=== PATIENT | male | born 1955 | race Caucasian/White ===

== ENCOUNTER → 2019-02-04 10:00 | Outpatient (CLI) | payer OTHER, SELFPAY ==
--- NOTE | 2019-02-04 10:02 | DI.RAD.S_ITS ---
PROCEDURE: XR WRIST LT MIN 3V INDICATIONS: Left wrist pain status post fall TECHNIQUE: 4 views of the wrist were acquired. COMPARISON: None. FINDINGS: Bones: Diffuse osteopenia. There is a corticated ossific density projecting over the dorsal wrist likely sequela of remote injury to the triquetrum. Subtle linear lucencies involving the distal left radius without evidence for articular cortical disruption. This may represent artifact from overlapping trabeculation. Overall alignment is anatomic. Joint spaces are maintained. No acute fractures seen. No suspicious bony lesions. Scaphoid view: Scapholunate interval is maintained. Visualized scaphoid appears intact. Soft tissues: No suspicious soft tissue calcifications. IMPRESSION: Left wrist without acute fracture or dislocation. If there is persistent clinical concern for occult fracture given adequate mechanism of injury, consider repeat imaging in 10-14 days. Dictated by: Martinez Rodriguez M.D. on 02/04/2019 at 10:27 Approved by: Martinez Rodriguez M.D. on 02/04/2019 at 10:30
== END ==
PROVIDERS: Visit Provider Physical Medicine & Rehabilitation
DX: M25.532 Pain in left wrist (principal)
CPT/HCPCS: 73110

== ENCOUNTER → 2019-05-27 08:11 | Outpatient (CLI) | payer OTHER, SELFPAY ==
--- NOTE | 2019-05-27 | DI.RAD.S_ITS ---
PROCEDURE: XR LUMBAR SPINE 2-3V INDICATIONS: low back pain TECHNIQUE: 3 views of the lumbar spine were acquired. COMPARISON: None. FINDINGS: Bones: 5 [id number] vertebrae are present. There is normal bony alignment. No vertebral body compression fractures. No suspicious bony lesions. Soft tissues: Overlying bowel gas pattern is normal. No suspicious soft tissue calcifications. IMPRESSION: No evidence acute bony abnormality of the lumbar spine. If clinical suspicion and/or symptoms persist, further assessment with repeat plain films, or advanced imaging (e.g., CT, MRI, or bone scan) may be helpful for further assessment. Dictated by: Rainer Gregorio M.D. on 05/27/2019 at 9:40 Approved by: Rainer Gregorio M.D. on 05/27/2019 at 9:40
== END ==
PROVIDERS: PCP Family Medicine; Referring Provider Chiropractor; Visit Provider Chiropractor
DX: M54.5 Low back pain (principal)
CPT/HCPCS: 72100

== ENCOUNTER → 2019-06-09 12:04 | Outpatient (CLI) | payer OTHER, SELFPAY ==
--- NOTE | 2019-06-09 12:07 | DI.RAD.S_ITS ---
PROCEDURE: XR CALCANEOUS RT MIN 2V INDICATIONS: Px plantar aspect of calcaneous w/ wt, h/o fall 3ft,2mos ag TECHNIQUE: Two views of the calcaneus were acquired. COMPARISON: None. FINDINGS: Bones: No fractures or dislocations. No suspicious bony lesions. Soft tissues: No suspicious calcifications. Achilles tendon appears normal. IMPRESSION: Normal for age, source of current pain after trauma symptoms is not seen. Dictated by: David Edwards M.D. on 06/09/2019 at 12:48 Approved by: David Edwards M.D. on 06/09/2019 at 12:49
== END ==
PROVIDERS: PCP Family Medicine; Referring Provider Nurse Practitioner; Visit Provider Nurse Practitioner
DX: M79.671 Pain in right foot (principal)
CPT/HCPCS: 73650

== ENCOUNTER → 2019-09-10 07:51 | Outpatient (CLI) | payer OTHER, SELFPAY ==
[2019-09-10 08:34] LABS: BUN Creatinine Ratio 19.3 (6-22); Blood Urea Nitrogen 17 mg/dL (9-20); Calcium 9.7 mg/dL (8.4-10.2); Carbon Dioxide 27 mmol/L (22-32); Chloride 103 mmol/L (98-107); Cholesterol 167 mg/dL (140-199); Estimated Glomerular Filt Rate > 60.0 mL/min (>60); Glucose 106 mg/dL (80-110); HDL Cholesterol 45 mg/dL (40-60); HEMOLYSIS < 15 (0-50); LDL Cholesterol Calculated 107 mg/dL (<100); Potassium 4.3 mmol/L (3.4-5.1); Sodium 138 mmol/L (137-145); Triglycerides 76 mg/dL (35-150)
[2019-09-10 09:04] LABS: Prostate Specific Antigen 0.626 ng/mL (0.10-4.00)
[2019-09-10 10:11] LABS: Vitamin D 25 Hydroxy (D3) 53.5 ng/mL (30.0-100.0)
== END ==
PROVIDERS: PCP Family Medicine; Referring Provider Family Medicine; Visit Provider Family Medicine
DX: Z12.5 Encounter for screening for malignant neoplasm of prostate (principal); Z13.220 Encounter for screening for lipoid disorders; E55.9 Vitamin D deficiency, unspecified
CPT/HCPCS: 36415; 80048; 80061; 82306; 84153

== ENCOUNTER → 2020-01-27 11:02 | Outpatient (CLI) | payer OTHER, SELFPAY ==
[2020-01-27 12:37] LABS: Add Manual Diff / Slide Review NO; Basophils Absolute Auto 0 /uL (0-100); Basophils Percent Auto 0.2 % (0-2); Eosinophils Absolute Auto 300 /uL (0-450); Eosinophils Percent Auto 3.6 % (2-4); Hematocrit 43.9 % (41-53); Hemoglobin 14.9 g/dL (13.5-17.5); Lymphocytes Absolute Auto 2200 /uL (1100-4500); Lymphocytes Percent Auto 32.1 % (25-40); Mean Corpuscular HGB Conc 33.8 % (30-36); Mean Corpuscular Hemoglobin 29.6 PG (26-34); Mean Corpuscular Volume 87.4 fL (80-100); Monocytes Absolute Auto 600 /uL (0-900); Monocytes Percent Auto 9.1 % (3-14); Neutrophils Absolute Auto 3800 /uL (1500-7000); Platelet Count 256 X10^3/uL (150-400); Red Blood Cell Count 5.02 X10^6/uL (4.5-5.9); Red Cell Distribution Width 12.6 % (11.6-14.8)
[2020-01-27 14:09] LABS: Urine N gonorrhoeae NOT DETECTED
[2020-01-27 14:10] LABS: Urine Chlamydia NOT DETECTED
[2020-01-28 10:03] LABS: RPR Screen Non Reactive (Non Reactive)
[2020-01-28 17:07] LABS: HIV 1 & 2 Ab/Ag 4th Gen Combo NEGATIVE (NEGATIVE)
== END ==
PROVIDERS: PCP Family Medicine; Referring Provider Family Medicine; Visit Provider Family Medicine
DX: K62.6 Ulcer of anus and rectum (principal)
CPT/HCPCS: 36415; 85025; 86592; 87389; 87491; 87591

== ENCOUNTER → 2020-10-27 19:09 | Outpatient (CLI) | payer MEDICARE, OTHER, SELFPAY ==
[2020-10-27 19:48] LABS: COVID19 -Nasal RAPID Negative (Negative)
== END ==
PROVIDERS: PCP Family Medicine; Visit Provider Physician Assistant
DX: R05 Cough (principal); R09.81 Nasal congestion; Z20.822 Contact with and (suspected) exposure to COVID-19
CPT/HCPCS: 87635

== ENCOUNTER → 2021-04-26 07:03 | Outpatient (CLI) | payer MEDICARE, OTHER, SELFPAY ==
[2021-04-26 08:30] LABS: Add Manual Diff / Slide Review NO; Basophils Absolute Auto 0 /uL (0-100); Basophils Percent Auto 0.3 % (0-2); Eosinophils Absolute Auto 300 /uL (0-450); Eosinophils Percent Auto 4.5 % (2-4); Hematocrit 42.4 % (41-53); Hemoglobin 14.5 g/dL (13.5-17.5); Lymphocytes Absolute Auto 2200 /uL (1100-4500); Lymphocytes Percent Auto 36.9 % (25-40); Mean Corpuscular HGB Conc 34.2 % (30-36); Mean Corpuscular Hemoglobin 29.9 PG (26-34); Mean Corpuscular Volume 87.4 fL (80-100); Monocytes Absolute Auto 600 /uL (0-900); Monocytes Percent Auto 9.9 % (3-14); Neutrophils Absolute Auto 2900 /uL (1500-7000); Neutrophils Percent Auto 48.4 % (50-75); Platelet Count 267 X10^3/uL (150-400); Red Blood Cell Count 4.85 X10^6/uL (4.5-5.9); White Blood Cell Count 5.9 X10^3/uL (4.5-11.0)
[2021-04-26 08:48] LABS: Alanine Aminotransferase 27 IU/L (<50); Albumin 4.4 g/dL (3.5-5.0); Albumin Globulin Ratio 1.6 (1.0-2.8); Alkaline Phosphatase 57 U/L (38-126); Aspartate Aminotransferase 28 IU/L (17-59); Bilirubin Total 0.9 mg/dL (0.2-1.3); Blood Urea Nitrogen 25 mg/dL (9-20); Calcium 9.7 mg/dL (8.4-10.2); Carbon Dioxide 31 mmol/L (22-32); Chloride 102 mmol/L (98-107); Cholesterol 150 mg/dL (140-199); Estimated Glomerular Filt Rate > 60.0 mL/min (>60); Globulin 2.7 g/dL (1.7-4.1); Glucose 103 mg/dL (80-110); HDL Cholesterol 52 mg/dL (40-60); HEMOLYSIS < 15 (0-50); LDL Cholesterol Calculated 89 mg/dL (<100); Potassium 4.7 mmol/L (3.4-5.1); Sodium 139 mmol/L (137-145); Total Protein 7.1 g/dL (6.3-8.2); Triglycerides 46 mg/dL (35-150)
[2021-04-26 09:15] LABS: Prostate Specific Antigen Scrn 0.744 ng/mL (0.1-4.0)
== END ==
PROVIDERS: PCP Family Medicine; Referring Provider Family Medicine; Visit Provider Family Medicine
DX: Z85.118 Personal history of other malignant neoplasm of bronchus and lung (principal); Z13.220 Encounter for screening for lipoid disorders; Z12.5 Encounter for screening for malignant neoplasm of prostate
CPT/HCPCS: 36415; 80053; 80061; 85025; G0103

== ENCOUNTER → 2021-05-24 14:16 | Outpatient (CLI) | payer MEDICARE, OTHER, SELFPAY ==
[2021-05-24 14:46] LABS: Add Manual Diff / Slide Review NO; Basophils Absolute Auto 0 /uL (0-100); Basophils Percent Auto 0.1 % (0-2); Eosinophils Absolute Auto 100 /uL (0-450); Eosinophils Percent Auto 0.8 % (2-4); Hematocrit 41.5 % (41-53); Hemoglobin 14.1 g/dL (13.5-17.5); Lymphocytes Absolute Auto 1600 /uL (1100-4500); Lymphocytes Percent Auto 11.5 % (25-40); Mean Corpuscular HGB Conc 34.1 % (30-36); Monocytes Absolute Auto 1500 /uL (0-900); Monocytes Percent Auto 10.6 % (3-14); Neutrophils Absolute Auto 11100 /uL (1500-7000); Platelet Count 274 X10^3/uL (150-400); Red Blood Cell Count 4.72 X10^6/uL (4.5-5.9); Red Cell Distribution Width 12.9 % (11.6-14.8); White Blood Cell Count 14.4 X10^3/uL (4.5-11.0)
[2021-05-24 15:02] LABS: Alanine Aminotransferase 18 IU/L (<50); Albumin 4.5 g/dL (3.5-5.0); Albumin Globulin Ratio 1.5 (1.0-2.8); Alkaline Phosphatase 64 U/L (38-126); Aspartate Aminotransferase 20 IU/L (17-59); BUN Creatinine Ratio 21.4 (6-22); Bilirubin Total 1.2 mg/dL (0.2-1.3); Blood Urea Nitrogen 24 mg/dL (9-20); Calcium 9.7 mg/dL (8.4-10.2); Carbon Dioxide 29 mmol/L (22-32); Chloride 98 mmol/L (98-107); Estimated Glomerular Filt Rate > 60.0 mL/min (>60); Glucose 110 mg/dL (80-110); HEMOLYSIS < 15 (0-50); Potassium 4.5 mmol/L (3.4-5.1); Sodium 136 mmol/L (137-145); Total Protein 7.5 g/dL (6.3-8.2)
== END ==
PROVIDERS: PCP Family Medicine; Referring Provider Physician Assistant; Visit Provider Physician Assistant
DX: N34.3 Urethral syndrome, unspecified (principal); R10.30 Lower abdominal pain, unspecified
CPT/HCPCS: 36415; 80053; 85025; 87086

== ENCOUNTER → 2022-03-26 15:14 | Outpatient (CLI) | payer MEDICARE, OTHER, SELFPAY ==
--- NOTE | 2022-03-26 15:22 | DI.RAD.S_ITS ---
PROCEDURE: XR FOOT RT MIN 3V INDICATIONS: Foot pain TECHNIQUE: 3 views of the foot were acquired. COMPARISON: None. FINDINGS: Bones: No fractures or dislocations. No suspicious bony lesions. Soft tissues: No tibiotalar joint effusion. Achilles tendon appears normal. IMPRESSION: No acute radiographic findings. If pain persists, followup imaging in 5-7 days is recommended to exclude occult fracture. Dictated by: Jeniffer Camilo M.D. on 03/26/2022 at 16:10 Approved by: Jeniffer Camilo M.D. on 03/26/2022 at 16:11
--- NOTE | 2022-03-26 15:22 | DI.RAD.S_ITS ---
PROCEDURE: XR FOOT LT MIN 3V INDICATIONS: Foot pain TECHNIQUE: 3 views of the foot were acquired. COMPARISON: None. FINDINGS: Bones: No fractures or dislocations. No suspicious bony lesions. Soft tissues: No tibiotalar joint effusion. Achilles tendon appears normal. IMPRESSION: No acute radiographic findings. If pain persists, followup imaging in 5-7 days is recommended to exclude occult fracture. Dictated by: Jeniffer Camilo M.D. on 03/26/2022 at 16:11 Approved by: Jeniffer Camilo M.D. on 03/26/2022 at 16:12
== END ==
PROVIDERS: PCP Family Medicine; Referring Provider Nurse Practitioner Family; Visit Provider Nurse Practitioner Family
DX: M79.671 Pain in right foot (principal); M79.672 Pain in left foot
CPT/HCPCS: 73630

== ENCOUNTER → 2022-07-09 08:31 | Outpatient (CLI) | payer MEDICARE, SELFPAY ==
[2022-07-09 09:55] LABS: Hemoglobin 14.1 g/dL (13.5-17.5); Mean Corpuscular HGB Conc 34.4 % (30-36); Mean Corpuscular Hemoglobin 30.1 PG (26-34); Mean Corpuscular Volume 87.4 fL (80-100); Platelet Count 245 X10^3/uL (150-400); Red Cell Distribution Width 13.1 % (11.6-14.8); White Blood Cell Count 5.4 X10^3/uL (4.5-11.0)
[2022-07-09 17:00] LABS: Alanine Aminotransferase 22 IU/L (<50); Albumin 4.1 g/dL (3.5-5.0); Albumin Globulin Ratio 1.5 (1.0-2.8); Alkaline Phosphatase 64 U/L (38-126); Aspartate Aminotransferase 23 IU/L (17-59); BUN Creatinine Ratio 19.6 (6-22); Bilirubin Total 0.5 mg/dL (0.2-1.3); Blood Urea Nitrogen 19 mg/dL (9-20); Calcium 9.2 mg/dL (8.4-10.2); Carbon Dioxide 31 mmol/L (22-32); Chloride 103 mmol/L (98-107); Cholesterol 159 mg/dL (140-199); Estimated Glomerular Filt Rate > 60 mL/min (>60); Globulin 2.8 g/dL (1.7-4.1); Glucose 97 mg/dL (80-110); HDL Cholesterol 48 mg/dL (40-60); LDL Cholesterol Calculated 101 mg/dL (<100); Potassium 4.4 mmol/L (3.4-5.1); Sodium 137 mmol/L (137-145); Total Protein 6.9 g/dL (6.3-8.2); Triglycerides 49 mg/dL (35-150)
[2022-07-09 17:32] LABS: HEMOLYSIS < 15 (0-50); Prostate Specific Antigen Scrn 0.871 ng/mL (0.1-4.0)
== END ==
PROVIDERS: PCP Family Medicine; Referring Provider Family Medicine; Visit Provider Family Medicine
DX: Z85.118 Personal history of other malignant neoplasm of bronchus and lung (principal); Z13.220 Encounter for screening for lipoid disorders; Z12.5 Encounter for screening for malignant neoplasm of prostate; Z13.228 Encounter for screening for other metabolic disorders
CPT/HCPCS: 36415; 80053; 80061; 85027; G0103

== ENCOUNTER 2023-01-29 14:27 | Emergency (ER) | payer MEDICARE, SELFPAY ==
[2023-01-29 14:30] VITALS: BP 147/87; PULSE 69; RESP 18; TEMP 36.3; O2SAT 99; BMI 28.1
[2023-01-29 15:06] LABS: Add Manual Diff / Slide Review NO; Basophils Absolute Auto 0 /uL (0-100); Basophils Percent Auto 0.2 % (0-2); Eosinophils Absolute Auto 100 /uL (0-450); Eosinophils Percent Auto 0.9 % (2-4); Hemoglobin 14.5 g/dL (13.5-17.5); Lymphocytes Absolute Auto 1700 /uL (1100-4500); Mean Corpuscular HGB Conc 34.5 % (30-36); Mean Corpuscular Hemoglobin 30.3 PG (26-34); Mean Corpuscular Volume 87.8 fL (80-100); Monocytes Absolute Auto 1400 /uL (0-900); Monocytes Percent Auto 10.8 % (3-14); Neutrophils Absolute Auto 10100 /uL (1500-7000); Neutrophils Percent Auto 75.1 % (50-75); Platelet Count 239 X10^3/uL (150-400); Red Blood Cell Count 4.78 X10^6/uL (4.5-5.9); Red Cell Distribution Width 12.8 % (11.6-14.8); White Blood Cell Count 13.4 X10^3/uL (4.5-11.0)
[2023-01-29 15:14] LABS: Alanine Aminotransferase 22 IU/L (<50); Albumin 4.5 g/dL (3.5-5.0); Albumin Globulin Ratio 1.2 (1.0-2.8); Alkaline Phosphatase 52 U/L (38-126); Aspartate Aminotransferase 22 IU/L (17-59); BUN Creatinine Ratio 17.5 (6-22); Bilirubin Total 1.6 mg/dL (0.2-1.3); Blood Urea Nitrogen 18 mg/dL (9-20); Calcium 9.6 mg/dL (8.4-10.2); Carbon Dioxide 29 mmol/L (22-32); Chloride 96 mmol/L (98-107); Estimated Glomerular Filt Rate > 60 mL/min (>60); Globulin 3.9 g/dL (1.7-4.1); Glucose 109 mg/dL (80-110); HEMOLYSIS 15 (0-50); Lipase 163 U/L (23-300); Sodium 137 mmol/L (137-145); Total Protein 8.4 g/dL (6.3-8.2)
--- NOTE | 2023-01-29 15:25 | ED.ABDPAIN ---
HPI - Abdominal Pain General Chief Complaint: Abdominal Pain Stated Complaint: sent by [facility] abd pain T-3 Time Seen by Provider: 01/29/23 15:11 Source: patient Mode of arrival: Ambulatory History of Present Illness HPI narrative: Patient is sent here from walk-in clinic for evaluation of left lower quadrant pain that started 3 days ago. Patient does not want anything for pain. Patient drove herself here. History of colonoscopy with diverticulosis but never had diverticulitis. No black or bloody stools. Pain is worse with movement and palpation. Patient in no distress. No urinary complaints no black or bloody stools. No back pain. Related Data Home Medications Medication Instructions Recorded Confirmed ResMed AirSense 10 Auto 07/19/21 01/29/23 Previous Rx's Medication Instructions Recorded scopolamine base 1 mg over 3 days 1 patch transdermal Q3D PRN motion 07/20/22 transdermal patch sickness #24 ea acyclovir 400 mg tablet 400 mg PO BID #180 tabs 08/08/22 celecoxib 200 mg capsule 200 mg PO DAILY #90 caps 08/08/22 ciprofloxacin HCl 500 mg tablet 500 mg PO BID #14 tabs 01/29/23 (Cipro) metronidazole 500 mg tablet 500 mg PO TID #21 tabs 01/29/23 Allergies Allergy/AdvReac Type Severity Reaction Status Date / Time morphine [MORPHINE] Allergy Unknown Hallucinati Verified 01/29/23 14:30 ons Review of Systems Review of Systems Narrative: GENERAL: negative chills, fatigue, malaise, fever, sweats. HEENT: negative sinus pain, ear pain, sore throat RESPIRATORY: negative dyspnea, cough CARDIOVASCULAR: negative chest pain, palpitations GASTROINTESTINAL: negative nausea, vomiting, positive abdominal pain : negative dysuria, frequency, hematuria MUSCULOSKELETAL: negative muscle or bony pain SKIN: negative rash, skin lesions NEUROLOGIC: negative weakness, numbness ROS Unobtainable: All systems reviewed & are unremarkable except as noted in HPI and below Patient History Medical History Chronic left-sided low back pain without sciatica Mild hyperlipidemia Arthralgia Medicare annual wellness visit, initial Erectile dysfunction Ulcer of anus and rectum Ulcer Herpes Obesity Peyronie's disease History of lung cancer Left wrist pain Obstructive sleep apnea of adult Family History Father Diabetes mellitus Mother Hypertension Social History marital status: details: to Celestine Horne, lives in [place] number of children: 2 household members: spouse lives independently: Yes caregiver/support person: No housing: house Smoking Status: Never smoker alcohol intake: current substance use type: marijuana Smoking Status: Never smoker alcohol intake frequency: a few times a week Substance Use Type: does not use Exam Narrative Exam Narrative: GENERAL: in no distress, not toxic not dyspneic HEAD: Normocephalic. EYES: Pupils equal round CARDIOVASCULAR: Regular rate and rhythm RESPIRATORY: Clear to auscultation. Breath sounds equal bilaterally. No wheezes, rales, or rhonchi. GASTROINTESTINAL: Abdomen soft, shirt removed, mild left lower quadrant tenderness no peritoneal signs bowel sounds are present. No CVA tenderness EXTREMITIES: No gross deformities. BACK: No flank tenderness. NEURO: AOx4. SKIN: Warm and dry PSYCH: Not anxious, is cooperative Initial Vital Signs Initial Vital Signs: Vital Signs Temperature 97.4 F L 01/29/23 14:30 Pulse Rate 69 01/29/23 14:30 Respiratory Rate 18 01/29/23 14:30 Blood Pressure 147/87 H 01/29/23 14:30 Pulse Oximetry 99 01/29/23 14:30 Oxygen Delivery Method Room Air 01/29/23 14:30 Course Orders Ordered: Discontinued Medications Ciprofloxacin (Ciprofloxacin 250 Mg Tablet) 500 mg PO NOW ONE Stop: 01/29/23 16:57 Last Admin: 01/29/23 17:09 Dose: 500 mg Documented By: KVNG Sodium Chloride (Normal Saline 0.9%) 1,000 mls @ 1,000 mls/hr IV BOLUS ONE Stop: 01/29/23 16:23 Last Infusion: 01/29/23 17:09 Dose: Infused Documented By: Admin: 01/29/23 15:52 Dose: 1,000 mls/hr Documented By: KVNG Metronidazole (Metronidazole 500 Mg Tablet) 500 mg PO NOW ONE Stop: 01/29/23 16:57 Last Admin: 01/29/23 17:08 Dose: 500 mg Documented By: KVNG Ondansetron HCl (Ondansetron 4 Mg Odt) 4 mg PO NOW PRN PRN Reason: Nausea And Vomiting Ondansetron HCl (Ondansetron 4 Mg/2 Ml Inj) 4 mg IV NOW PRN PRN Reason: Nausea And Vomiting Vital Signs Vital signs: Vital Signs - 8 hr 01/29/23 14:30 Temperature 97.4 F L Pulse Rate 69 Respiratory Rate 18 Blood Pressure 147/87 H Pulse Oximetry 99 Oxygen Delivery Method Room Air MDM - Abdominal Pain Lab Data 01/29/23 14:47 01/29/23 14:47 Labs: Lab Results 01/29/23 01/29/23 Range/Units 14:47 16:42 WBC 13.4 H (4.5-11.0) X10^3/uL RBC 4.78 (4.5-5.9) X10^6/uL Hgb 14.5 (13.5-17.5) g/dL Hct 42.0 (41-53) % MCV 87.8 (80-100) fL MCH 30.3 (26-34) PG MCHC 34.5 (30-36) % RDW 12.8 (11.6-14.8) % Plt Count 239 (150-400) X10^3/uL Neut % (Auto) 75.1 H (50-75) % Lymph % (Auto) 13.0 L (25-40) % [place] % (Auto) 10.8 (3-14) % Eos % (Auto) 0.9 L (2-4) % Baso % (Auto) 0.2 (0-2) % Neut # (Auto) 05600 H (3290-8694) /uL Lymph # (Auto) 1700 (5614-7772) /uL [place] # (Auto) 1400 H (0-900) /uL Eos # (Auto) 100 (0-450) /uL Baso # (Auto) 0 (0-100) /uL Sodium 137 (137-145) mmol/L Potassium 4.0 (3.4-5.1) mmol/L Chloride 96 L (98-107) mmol/L Carbon Dioxide 29 (22-32) mmol/L BUN 18 (9-20) mg/dL Creatinine 1.03 (0.66-1.25) mg/dL Estimated GFR > 60 (>60) mL/min BUN/Creatinine Ratio 17.5 (6-22) Glucose 109 (80-110) mg/dL Calcium 9.6 (8.4-10.2) mg/dL Total Bilirubin 1.6 H (0.2-1.3) mg/dL AST 22 (17-59) IU/L ALT 22 (<50) IU/L Alkaline Phosphatase 52 (38-126) U/L Total Protein 8.4 H (6.3-8.2) g/dL Albumin 4.5 (3.5-5.0) g/dL Globulin 3.9 (1.7-4.1) g/dL Albumin/Globulin Ratio 1.2 (1.0-2.8) Lipase 163 (23-300) U/L Urine RBC 1-5/hpf (0-5/HPF) Urine WBC 0-1/hpf (0-5/HPF) Ur Squamous Epith Cells 0-1 /hpf (0-5/HPF) Urine Bacteria None seen (None) Ur Culture Indicated? Cult not indicated Point of care testing: Urine Dip Bedside Urine Glucose Negative Bedside Urine Bilirubin - Negative Bedside Urine Ketone + 15 Urine Specific [place] 1.005 Bedside Urine Occult Blood +/- Bedside Urine pH 6.0 Bedside Urine Protein - Negative Bedside Urine Urobilinogen - Negative Bedside Urine Nitrite - Negative Bedside Urine Leukocytes - Negative Esterase Imaging Data CT scan - abdomen/pelvis: Radiologist's Impression: [place] [address] CT Scan Report Signed Patient: Beto Brown MR#: [id number] : 1955 Acct:[id number] Age/Sex: 67 / M Date of Service: 01/29/23 Loc: ED Accession Number: [id number] Procedure: CT abdomen pelvis w con Ordering Provider: Rui Bernal MD PROCEDURE: CT ABDOMEN PELVIS W CON INDICATIONS: IV contrast only/left lower quadrant pain TECHNIQUE: After the administration of intravenous contrast, axial sections acquired from the lung bases to the pubic symphysis. Coronal and sagittal reformats were performed. For radiation dose reduction, the following was used: automated exposure control, adjustment of mA and/or kV according to patient size. COMPARISON: None. FINDINGS: Image quality: Excellent. Lung bases: Unremarkable. Heart: Heart size is normal. Coronary atherosclerotic vascular calcifications are noted. ABDOMEN: Liver: Liver is unremarkable in appearance without focal intrahepatic abnormalities. No intrahepatic or extrahepatic biliary ductal dilatation. Gallbladder: Unremarkable. Biliary ducts: Unremarkable. Pancreas: Homogeneous enhancement without focal lesions or pancreatic ductal dilatation. No peripancreatic inflammation or organized fluid collections. Spleen: No splenomegaly Adrenal Glands: Unremarkable. Kidneys and Ureters: Kidneys are symmetric in size and enhancement, and there is no obstructive uropathy. No perinephric inflammatory changes. Ureters are normal in course and caliber. Stomach and Bowel: Stomach and small bowel loops are unremarkable. Scattered colonic diverticula with moderate acute inflammatory changes of the distal descending colon and proximal sigmoid colon. No evidence for perforation or abscess formation. No asymmetric wall thickening identified. No evidence for bowel obstruction. Normal appendix. Peritoneum: No abnormal intraperitoneal fluid. No free air. Ventral Wall: No hernia. Abdominal Nodes: No retroperitoneal or mesenteric adenopathy by size criteria. Vessels: Aorta and inferior vena cava are normal in size. PELVIS: Pelvic Organs: Unremarkable. Bladder: Unremarkable. Pelvic Nodes: No enlarged lymph nodes. Miscellaneous: No inguinal hernias are seen. Bones: No acute vertebral body compression fractures. Multilevel spondylitic changes throughout the imaged spine. No suspicious osseous lesions. IMPRESSION: 1. Moderate acute diverticulitis involving the distal descending colon and proximal sigmoid colon without evidence for perforation or abscess formation. 2. Normal appendix. 3. Atherosclerosis. 4. Other chronic findings as above. Dictated by: Martinez Rodriguez M.D. on 01/29/2023 at 16:44 Approved by: Martinez Rodriguez M.D. on 01/29/2023 at 16:48 [facility] Narrative Medical decision making narrative: Patient is sent here from walk-in clinic for evaluation of left lower quadrant pain that started 3 days ago. Patient does not want anything for pain. Patient drove herself here. History of colonoscopy with diverticulosis but never had diverticulitis. No black or bloody stools. Pain is worse with movement and palpation. Patient in no distress. No urinary complaints no black or bloody stools. No back pain. After history and exam CBC CMP lipase CT abdomen pelvis normal saline [facility] CC: Left lower quadrant pain Complicating co-morbidities: History of diverticulosis Data collected from: Patient Medical records reviewed: Walk-in clinic notes just prior to arrival Differential considered: Includes but not limited to diverticulitis colitis kidney stone pyelonephritis UTI Exam documented above, pertinent findings include: Left lower quadrant tenderness Lab Test results independently reviewed as above. Pertinent findings: WBC 13.4 hemoglobin 14.5 Sodium 137 potassium 4.0 bicarb 29 GFR greater than 60 AST 22 ALT 22 lipase 163 Imaging studies independently reviewed: CT abdomen pelvis acute diverticulitis Consultations: None indicated at this time Treatments: Normal saline Cipro Flagyl Re-evaluations: 5:04 p.m.. Reviewed results with patient. At this time CT imaging did show diverticulitis. Reviewed with him diverticulitis and treatment and dietary changes and plans and follow up for colonoscopy. Referral for General surgery for colonoscopy provided. Return precautions reviewed with him. Not toxic at discharge. He desires discharge home. He states he is hungry for dinner. Discussion: Appropriate for discharge home. Exam and laboratory studies and imaging otherwise reassuring. Pain is controlled. Reviewed with patient diverticulitis and dietary changes and prevention habits. Referral for General surgery for colonoscopy provided. Nontoxic at discharge. He desires discharge home. Return precautions reviewed with him Diagnosis: Acute diverticulitis Discharge Plan Departure Patient Disposition: Home Clinical Impression: Diverticulitis Instructions: DI for Diverticulitis Activity Restrictions/Additional Instructions: Your testing shows a day that you have diverticulitis. Please continue antibiotics tomorrow, they have been sent to your pharmacy to continue. May use Tylenol ibuprofen for pain. Please call provided general surgery office with Dr. Denise to schedule outpatient colonoscopy. Return if worse if any questions or concerns or if increased pain or fever Prescriptions: New metronidazole 500 mg tablet 500 mg PO TID Qty: 21 0RF ciprofloxacin HCl [Cipro] 500 mg tablet 500 mg PO BID Qty: 14 0RF No Action scopolamine base 1 mg over 3 days patch 3 day 1 patch transdermal Q3D PRN (Reason: motion sickness) Qty: 24 0RF acyclovir 400 mg tablet 400 mg PO BID Qty: 180 0RF Rx Instructions: OK TO REFILL EARLY. celecoxib 200 mg capsule 200 mg PO DAILY Qty: 90 0RF Rx Instructions: OK TO REFILL EARLY. (DME) ResMed AirSense 10 Auto See Rx Instructions .Route .MEDSUPPLY Rx Instructions: CPAP Min: 6 Max: 14 DME: [employer] Referrals: Storm Denise MD [Physician] - Neymar Briceno DO [Primary Care Provider] - Stand Alone Forms: Patient Portal/API
[2023-01-29] MEDS: SODIUM CHLORIDE 0.9% 1,000 ML 1000 ML IV (15:52)
[2023-01-29 16:48] VITALS: PULSE 70; O2SAT 98
[2023-01-29 16:50] VITALS: BP 144/69; PULSE 68; O2SAT 99
[2023-01-29 17:00] VITALS: BP 137/74; PULSE 72; O2SAT 98
[2023-01-29] MEDS: metroNIDAZOLE 500 MG TABLET PO (17:08)
[2023-01-29] MEDS: CIPROFLOXACIN 250 MG TABLET 500 MG PO (17:09)
[2023-01-29 17:31] LABS: Bacteria Urine None Seen; Culture Indicated Urine Cult Not Indicated; RBC Urine 1-5/HPF (0-5/HPF); Squamous Epithelial Cell Urine 0-1 /HPF (0-5/HPF); WBC Urine 0-1/HPF (0-5/HPF)
== END 2023-01-29 17:15 | disposition home or self-care (01) ==
PROVIDERS: Emergency Provider Emergency Medicine; PCP Family Medicine
DX: K57.92 Diverticulitis of intestine, part unspecified, without perforation or abscess without bleeding (principal)
CPT/HCPCS: 74177; 80053; 81003; 81015; 83690; 85025; 96360; 99284; Q9967

== ENCOUNTER → 2023-03-20 15:22 | Outpatient (CLI) | payer MEDICARE, SELFPAY ==
--- NOTE | 2023-03-21 10:25 | DI.NM.S_ITS ---
DATE OF SERVICE: 03/20/2023 PROCEDURE: Exercise treadmill stress test without imaging. ORDERING PROVIDER: Dr. Neymar Briceno. INDICATIONS: The patient is a 67-year-old male with recent abdominal pain and a CT scan suggesting arterial atherosclerosis. FINDINGS: 1. The patient was able to exercise for 10 minutes on a standard J Carlos protocol suggesting excellent exercise capacity with an YOHANA of -30%, achieving 10.7 METS. 2. He had a normal heart rate and blood pressure response to exercise, achieving a maximum heart rate of 160 BPM (105% of his predicted maximum). 3. He had no chest discomfort or other anginal symptoms. 4. His resting ECG showed sinus rhythm with normal ST segments. There were no significant ST-segment shifts or arrhythmias with stress with the exception of a rare isolated PVCs at peak exercise and in recovery. IMPRESSION: 1. Normal exercise treadmill stress test for ischemia. 2. Excellent exercise capacity without angina and only rare isolated PVCs. Beto Brown - ROMÁN/griselda/SG doc#: [id number]/job#: [id number] dd: 03/20/2023 16:23:00 dt: 03/20/2023 22:06:00 DICTATING /COPIES TO: Rodolfo Washington MD; Neymar Briceno M.D. COPIES MNE: SOULEYMANE;
== END ==
PROVIDERS: PCP Family Medicine; Referring Provider Family Medicine; Visit Provider Family Medicine
DX: I25.10 Atherosclerotic heart disease of native coronary artery without angina pectoris (principal)
CPT/HCPCS: 93017

== ENCOUNTER 2023-06-12 07:00 | Day surgery (SDC) | payer MEDICARE, SELFPAY ==
--- NOTE | 2023-06-12 | PATH_ITS ---
[facility] Accession Number: [id number] No. of containers..02 Tissue . 01 Material submitted: . PART A: colon - TRANSVERSE POLYP PART B: colon - DESCENDING POLYP . 01 Diagnosis: A. TRANSVERSE COLON POLYP: Tubular adenoma. . B. DESCENDING COLON POLYP: Inflamed granulation tissue/inflammatory polyp. Negative for dysplasia or malignancy. MRV 06/14/2023 1323 Local . 01 Electronically signed: . Jefferson Urbano MD, PhD, Pathologist NPI- [id number] . 01 Gross description: . Part A: TRANSVERSE POLYP: Received in formalin is 1 fragment(s) of andrews, soft tissue measuring 0.4 x 0.4 x 0.2 cm submitted entirely in 1 cassette(s) Part B: DESCENDING POLYP: Received in formalin are 2 fragment(s) of andrews, soft tissue measuring 0.1 x 0.1 x 0.1 cm to 0.4 x 0.4 x 0.2 cm submitted entirely in 1 cassette(s) /SYDNEY 06/14/2023 0116 Local . 01 Pathologist provided ICD-10: D12.3, K51.40 . 01 CPT . 914645, 119977 Specimen Comment: A courtesy copy of this report has been sent to [phone] Performed at: 01 [facility] [address] [place] [address], [place], [place] [id number] MD Donavan Guardado MD Phone: [phone]
[2023-06-12] MEDS: LACTATED RINGERS 1,000 ML 42 ML IV (07:18)
[2023-06-12 07:23] VITALS: BP 140/90; PULSE 73; RESP 18; TEMP 35.7; O2SAT 99
--- NOTE | 2023-06-12 07:34 | PM.HP.1 ---
History of Present Illness History of Present Illness Date Patient Seen: 06/12/23 Time Patient Seen: 07:34 Chief complaint: Screening Colonoscopy Narrative: Beto is a 67-year-old and who presents for colonoscopy. He has had a few before with some polyps removed. According to the chart his last colonoscopy was was 2016 and he believes some polyps have been removed on prior colonoscopies. No family history of colon cancer. He has had 2 episodes of diverticulitis within the past few months but he is currently asymptomatic. [facility] Medical History Chronic left-sided low back pain without sciatica Mild hyperlipidemia Arthralgia Medicare annual wellness visit, initial Erectile dysfunction Ulcer of anus and rectum Ulcer Herpes Obesity Peyronie's disease History of lung cancer Left wrist pain Obstructive sleep apnea of adult Family History Father Diabetes mellitus Mother Hypertension Social History marital status: details: to Celestine Horne, lives in [place] number of children: 2 household members: spouse lives independently: Yes caregiver/support person: No housing: house Smoking Status: Never smoker alcohol intake: current substance use type: marijuana Meds Home Medications and Allergies Home Medications Medication Instructions Recorded Confirmed Type ResMed AirSense 10 Auto 07/19/21 01/29/23 History acyclovir 400 mg tablet 400 mg PO BID #180 tabs 08/08/22 06/12/23 Rx Allergies Allergy/AdvReac Type Severity Reaction Status Date / Time morphine [MORPHINE] Allergy Unknown Hallucinati Verified 06/12/23 07:20 ons Exam Vital Signs (past 8 hours): - 06/12/23 07:23 Temperature 96.2 F L Pulse Rate 73 Respiratory Rate 18 Blood Pressure 140/90 Pulse Oximetry 99 Oxygen Delivery Method Room Air Oxygen Delivery Method Room Air Const General: healthy appearing Resp Effort & Inspection: normal respiratory effort Assessment & Plan Assessment and plan (1) Personal history of colonic polyps: Status: Acute Plan We discussed the risks and benefits of colonoscopy for colon cancer screening and he would like to proceed. If he has acute inflammation somewhere in his colon we may have to abort the procedure. He understands and wishes to proceed.
--- NOTE | 2023-06-12 08:02 | PM.OP.COLON ---
Operative Date/Time/Diagnoses Date of procedure: 06/12/23 Time of procedure: 08:02 Pre-op diagnosis: Colon cancer screening and history of polyps Post-op diagnosis: same Procedure & Clinicians Study performed: Colonoscopy Same procedure as scheduled: Yes Surgeon: Storm Denise Procedure Notes Procedure in detail: Surgeon: Storm Denise MD Anesthesia: Piedad Coronado CRNA Procedure: The patient was brought to the endoscopy suite, placed in left lateral decubitus position. The patient was connected to monitoring devices. A time-out was performed. Sedation was administered. Once the patient was adequately sedated, a digital rectal exam was performed and was normal. The scope was then inserted and advanced to the cecum where the appendiceal orifice was identified and photographed. The scope was then slowly withdrawn over greater than 6 minutes. The mucosa was thoroughly inspected. There was a 4 mm polyp in the transverse colon removed with a cold snare. There was a 3 mm polyp in the descending colon removed with a cold snare. There were scattered diverticula in the sigmoid colon. There was no obvious diverticulitis. The scope was retroflexed in the rectum. No other abnormalities were seen. The scope was straightened and removed. The patient was awakened and brought to recovery. Scope withdrawal time: 12 minutes Sedation time: 16 minutes EBL: 3 mL Findings: 4 mm polyp in the transverse colon, 3 mm polyp in the descending colon and scattered sigmoid diverticulosis Post-procedure Disposition: PACU
[2023-06-12 08:04] VITALS: BP 96/62; PULSE 59; RESP 16; TEMP 36.2; O2SAT 97
[2023-06-12 08:09] VITALS: BP 108/71; PULSE 55; RESP 16; O2SAT 97
[2023-06-12 08:16] VITALS: BP 107/69; PULSE 62; RESP 16; TEMP 36.8; O2SAT 95
[2023-06-12 08:22] VITALS: BP 106/78; PULSE 58; RESP 16; O2SAT 97
== END 2023-06-12 08:35 | disposition home or self-care (01) ==
PROVIDERS: Surgery; PCP Family Medicine; Referring Provider Surgery; Visit Provider Surgery
PROC: 0DJD8ZZ Inspection of Lower Intestinal Tract, Via Natural or Artificial Opening Endoscopic (ICD-10-PCS; CPT 45378; principal; 2023-06-12 07:45)
DX: Z12.11 Encounter for screening for malignant neoplasm of colon (principal); Z86.010 Personal history of colon polyps; K57.30 Diverticulosis of large intestine without perforation or abscess without bleeding; D12.3 Benign neoplasm of transverse colon; K51.40 Inflammatory polyps of colon without complications
CPT/HCPCS: 45385; J2704

== ENCOUNTER → 2023-06-17 16:54 | Outpatient (CLI) | payer MEDICARE, SELFPAY ==
--- NOTE | 2023-06-17 16:56 | DI.RAD.S_ITS ---
PROCEDURE: XR FOOT LT MIN 3V INDICATIONS: Left foot injury, s/p fall TECHNIQUE: 3 views of the foot were acquired. COMPARISON: [facility], CR, XR FOOT LT MIN 3V, 03/26/2022, 15:22. FINDINGS: Bones: No fractures or dislocations. No suspicious bony lesions. Soft tissues: No tibiotalar joint effusion. Achilles tendon appears normal. IMPRESSION: No acute bony abnormality. Dictated by: Braden Christensen M.D. on 06/17/2023 at 17:33 Approved by: Braden Christensen M.D. on 06/17/2023 at 17:34
== END ==
LOC: RAD 16:56
PROVIDERS: PCP Family Medicine; Referring Provider Physician Assistant Surgical; Visit Provider Physician Assistant Surgical
DX: M79.672 Pain in left foot (principal)
CPT/HCPCS: 73630

== ENCOUNTER → 2023-09-03 09:14 | Outpatient (CLI) | payer MEDICARE, SELFPAY ==
[2023-09-03 10:16] LABS: Add Manual Diff / Slide Review NO; Basophils Absolute Auto 0 /uL (0-100); Basophils Percent Auto 0.3 % (0-2); Eosinophils Absolute Auto 200 /uL (0-450); Eosinophils Percent Auto 4.1 % (2-4); Hematocrit 43.5 % (41-53); Hemoglobin 14.9 g/dL (13.5-17.5); Lymphocytes Absolute Auto 1900 /uL (1100-4500); Lymphocytes Percent Auto 33.2 % (25-40); Mean Corpuscular HGB Conc 34.4 % (30-36); Mean Corpuscular Hemoglobin 30.4 PG (26-34); Mean Corpuscular Volume 88.5 fL (80-100); Monocytes Absolute Auto 400 /uL (0-900); Monocytes Percent Auto 7.7 % (3-14); Neutrophils Absolute Auto 3100 /uL (1500-7000); Neutrophils Percent Auto 54.7 % (50-75); Platelet Count 265 X10^3/uL (150-400); Red Blood Cell Count 4.91 X10^6/uL (4.5-5.9); Red Cell Distribution Width 13.3 % (11.6-14.8); White Blood Cell Count 5.6 X10^3/uL (4.5-11.0)
[2023-09-03 11:02] LABS: Alanine Aminotransferase 29 IU/L (<50); Albumin 4.6 g/dL (3.5-5.0); Albumin Globulin Ratio 1.8 (1.0-2.8); Alkaline Phosphatase 60 U/L (38-126); Aspartate Aminotransferase 27 IU/L (17-59); BUN Creatinine Ratio 21.1 (6-22); Bilirubin Total 1.1 mg/dL (0.2-1.3); Blood Urea Nitrogen 23 mg/dL (9-20); Calcium 9.5 mg/dL (8.4-10.2); Carbon Dioxide 31 mmol/L (22-32); Chloride 103 mmol/L (98-107); Cholesterol 175 mg/dL (140-199); Estimated Glomerular Filt Rate > 60 mL/min (>60); Globulin 2.6 g/dL (1.7-4.1); Glucose 108 mg/dL (80-110); HDL Cholesterol 57 mg/dL (40-60); HEMOLYSIS < 15 (0-50); LDL Cholesterol Calculated 102 mg/dL (<100); Potassium 4.9 mmol/L (3.4-5.1); Sodium 138 mmol/L (137-145); Total Protein 7.2 g/dL (6.3-8.2); Triglycerides 80 mg/dL (35-150)
[2023-09-03 11:31] LABS: Prostate Specific Antigen Scrn 0.965 ng/mL (0.1-4.0)
== END ==
PROVIDERS: PCP Family Medicine; Referring Provider Family Medicine; Visit Provider Family Medicine
DX: E78.5 Hyperlipidemia, unspecified (principal); Z12.5 Encounter for screening for malignant neoplasm of prostate
CPT/HCPCS: 36415; 80053; 80061; 85025; G0103

== ENCOUNTER → 2023-10-03 15:46 | Outpatient (CLI) | payer MEDICARE, SELFPAY ==
--- NOTE | 2023-10-03 15:47 | DI.RAD.S_ITS ---
PROCEDURE: XR SHOULDER RT MIN 2V INDICATIONS: pain TECHNIQUE: 3 views of the shoulder were acquired. COMPARISON: None available. FINDINGS: Bones: There are surgical screwsin the humeral head. No fractures or dislocations. There is mild acromioclavicular and glenohumeral joint degeneration. No suspicious bony lesions. Old right 5th and 6th rib fractures are noted. Soft tissues: No suspicious soft tissue calcifications. IMPRESSION: 1. Postsurgical changes in humeral head. 2. Mild degenerative joint disease. If clinical symptoms persist, consider MRI for further evaluation. 3. Old right rib fractures. Dictated by: Rain Pelletier M.D. on 10/04/2023 at 10:50 Approved by: Rain Pelletier M.D. on 10/04/2023 at 10:59
== END ==
PROVIDERS: Family Provider Family Medicine; PCP Family Medicine; Referring Provider Family Medicine; Visit Provider Family Medicine
DX: M19.011 Primary osteoarthritis, right shoulder (principal); M25.511 Pain in right shoulder; S22.41XS Multiple fractures of ribs, right side, sequela
CPT/HCPCS: 73030

== ENCOUNTER → 2023-11-13 08:59 | Outpatient (CLI) | payer MEDICARE, SELFPAY ==
[2023-11-13 09:36] LABS: Estimated Glomerular Filt Rate > 60 mL/min (>60)
--- NOTE | 2023-11-13 10:30 | DI.CT.S_ITS ---
PROCEDURE: CT ABDOMEN PELVIS W CON INDICATIONS: Abdominal pain TECHNIQUE: Oral contrast was given in this patient. After the administration of intravenous contrast, axial sections acquired from the lung bases to the pubic symphysis. Coronal and sagittal reformats were performed. For radiation dose reduction, the following was used: automated exposure control, adjustment of mA and/or kV according to patient size. COMPARISON: , CT, CT ABDOMEN PELVIS W CON, 01/29/2023, 15:28. FINDINGS: Image quality: Diagnostic. Lower Chest: No significant findings. ABDOMEN: Liver: No solid mass. Gallbladder: No radiopaque gallstones or wall thickening. Biliary ducts: No biliary dilation. Pancreas: No ductal dilation. Spleen: Size is within normal limits. Adrenal Glands: No adrenal nodules. Kidneys and Ureters: No hydronephrosis. No solid mass. No complex renal cystic lesion which requires follow up. Stomach and Bowel: Sigmoid diverticulosis is seen. Within the sigmoid, there is moderate wall thickening, with mild surrounding inflammatory change. The colon is otherwise unremarkable. (The previously seen distal descending colonic diverticulitis has resolved.) No dilated loops of small bowel are seen. A normal appendix is noted. Peritoneum: No peritoneal abscess is seen. No abnormal intraperitoneal fluid. No free air. Ventral Wall: No significant ventral hernia. Abdominal Nodes: No retroperitoneal or mesenteric adenopathy by size criteria. Vessels: Aorta and inferior vena cava are normal in size. Atherosclerotic calcification is noted. PELVIS: Pelvic Organs: Unremarkable. Bladder: No bladder wall thickening, accounting for underdistention. Pelvic Nodes: No enlarged lymph nodes. Miscellaneous: Bilateral fat containing inguinal hernias are seen, left larger than right. Bones: Remote left posterior rib fractures are seen. There is a remote, stable L1 mild anterior wedge deformity. IMPRESSION: Mild sigmoid diverticulitis, without findings of perforation or abscess. When clinically appropriate (following adequate treatment of the patient's current clinical episode) a colonoscopy is recommended for further evaluation for a potential underlying mass (if not already recently done). Additional findings: Remote left posterior rib fractures Remote stable L1 anterior wedge deformity Normal appendix Bilateral fat containing inguinal hernias Dictated by: Mark Cardenas M.D. on 11/13/2023 at 13:58 Approved by: Mark Cardenas M.D. on 11/13/2023 at 14:00
== END ==
PROVIDERS: Radiology Diagnostic Radiology; Family Provider Family Medicine; PCP Family Medicine; Referring Provider Surgery; Visit Provider Surgery
DX: K57.32 Diverticulitis of large intestine without perforation or abscess without bleeding (principal); K40.20 Bilateral inguinal hernia, without obstruction or gangrene, not specified as recurrent; S22.42XS Multiple fractures of ribs, left side, sequela; M43.8X6 Other specified deforming dorsopathies, lumbar region
CPT/HCPCS: 36415; 74177; 82565; Q9967

== ENCOUNTER 2023-11-15 10:30 | Outpatient (RCR) | payer MEDICARE, SELFPAY ==
--- NOTE | 2023-11-05 14:30 | PT.OIE ---
Current Diagnoses Pain in right shoulder (11/05/23) Cervicalgia (11/05/23) Past Medical History (Last Updated 09/23/23 @ 15:52 by Neymar Briceno DO) Arthralgia Chronic left-sided low back pain without sciatica Diverticulitis Erectile dysfunction Herpes History of lung cancer Left wrist pain Medicare annual wellness visit, initial Mild hyperlipidemia Obesity Obstructive sleep apnea of adult Peyronie's disease Right shoulder pain Ulcer Ulcer of anus and rectum Visit Care Team Role Provider Type Neymar Briceno DO Family Provider Physician Primary Care Provider Specialty: Family Practice Address: [address] [place] [address], [id number] Email: Nelly Arroyo DO Attending Provider Physician Referring Provider Specialty: Medical Address: [address] [place] [address], [address], [place], [address] Email: [email or web address] Physical Therapy Initial Evaluation PT-OP-A Visit Information Start: 11/05/23 17:38 Freq: Status: Active Protocol: Document 11/05/23 13:55 DCW (Rec: 11/05/23 17:51 [facility] [id number]) Out-Patient Physical Therapy Visit Information Visit Information Visit Type Initial Evaluation Visit Note Late Arrival Visit Start Time 13:55 Visit Stop Time 14:30 Visit Number 1 Number of RIVET MAKER Visits 0 Evaluation Information Evaluation Date 11/05/23 PT-OP-B Current Condition Start: 11/05/23 17:38 Freq: Status: Active Protocol: Document 11/05/23 13:55 DCW (Rec: 11/05/23 17:51 [facility] [id number]) Current Condition History of Current Condition Onset Date 3-4 month history Current Complaints Pain along R upper shoulder History of Current Condition Pt is a 68 year old male presenting with a 3-4 month history of right shoulder pain . Pt reports he lifted a potted tree to plant in the ground, and the root ball was heavier than he expected. Notes it didn't feel right at the time, but then has continued, specifically with certain movement. Stretching into horizontal adduction, trying to perform push-ups, and lifting all bother the upper shoulder. Pt describes it more as a feeling of fullness or pressure. Did have a R rotator cuff repair 5-6 years ago, pt notes this feels different, and in a completely different area. Has improved over the last few weeks, but does still bother him. Prior Treatments and Tests Shoulder X-ray: IMPRESSION: 1 . Postsurgical changes in humeral head. 2. Mild degenerative joint disease. If clinical symptoms persist, consider MRI for further evaluation. 3. Old right rib fractures. per Russell Rao on 10/04/2023 PT-OP-C Subjective Start: 11/05/23 17:38 Freq: Status: Active Protocol: Document 11/05/23 13:55 DCW (Rec: 11/05/23 17:51 DCW [id number]) OP-PT Subjective Patient Comments Patient Comments It's more of a fullness, or pressure, than actual pain. PT-OP-F Manual Assessment Start: 11/05/23 17:38 Freq: Status: Active Protocol: Document 11/05/23 13:55 DCW (Rec: 11/06/23 09:33 DCW [id number]) Manual Assessments Soft Tissue Assessment Soft Tissue Mobility Assessment Moderate tone with tenderness to palpation 2/4: Pain with Wincing on R Levator Scapulae PT-OP-K Range of Motion Start: 11/05/23 17:38 Freq: Status: Active Protocol: Document 11/05/23 13:55 DCW (Rec: 11/06/23 09:33 DCW [id number]) Shoulder Goniometric Range of Motion Shoulder Right Active Testing Position Sitting Flexion 180 Abduction 150 External Rotation at 0 degrees Abduction 50 Internal Rotation Behind Back (text) T10 Comments No complaints of pain, but fullness with abduction Left Active Testing Position Sitting Flexion 180 Abduction 180 External Rotation at 0 degrees Abduction 70 Internal Rotation Behind Back (text) T8 PT-OP-L Special Tests Start: 11/05/23 17:38 Freq: Status: Active Protocol: Document 11/05/23 13:55 DCW (Rec: 11/06/23 09:33 DCW [id number]) Special Tests Shoulder Special Tests Passive ER Rotator Cuff Test Results Negative Lift-Off Rotator Cuff Test Results Negative Hurst Homero Impingement Test Results Negative Grind Labrum Test Results Negative Empty Can Test Results Negative Drop Arm Rotator Cuff Test Results Negative Belly Press Test Results Negative AC Joint Compression Test Results Negative Apprehension Test Test Results Negative PT-OP-M Strength Start: 11/05/23 17:38 Freq: Status: Active Protocol: Document 11/05/23 13:55 DCW (Rec: 11/06/23 09:33 DCW [id number]) Scapula Strength Scapula Manual Muscle Testing Right Elevation (C4) 5 Normal Left Elevation (C4) 5 Normal Shoulder Strength Shoulder Manual Muscle Testing Right Flexion 5 Normal Abduction (C5) 5 Normal External Rotation 5 Normal Internal Rotation 5 Normal Left Flexion 5 Normal Abduction (C5) 5 Normal External Rotation 5 Normal Internal Rotation 5 Normal PT-OP-Q Treatments Start: 11/05/23 17:38 Freq: Status: Active Protocol: Document 11/05/23 13:55 DCW (Rec: 11/05/23 17:53 DCW [id number]) Therapeutic Exercises Sitting Exercises Levator Stretch Sitting Exercise Name Stretch with overpressure, stretch with wrist grasp Side right PT-OP-T Assessment and Plan Start: 11/05/23 17:38 Freq: Status: Active Protocol: Document 11/05/23 13:55 DCW (Rec: 11/06/23 12:21 DCW [id number]) Physical Therapy Assessment Rehab Potential Rehabilitation Potential Good Evaluation Complexity Number of Personal Factors/Comorbidities 0 Number of Body Systems Impaired 4 or More Clinical Presentation at Evaluation Stable Impairments Impairments Functional Activities, Functional Mobility,Pain, Strength Goals Two Impairment Pt unable to perform preferred activity of push-ups d/t pain in R shoulder Longterm Goal (LTG) Pt to return to prior number of push-ups for exercise without increased pain in right upper quadrant. LTG Duration 01/06/24 One Impairment Pt does not have an appropriate home exercise program Short Term Goal (STG) Pt to be independent and compliant with an appropriate HEP STG Duration 12/06/23 Assessment Summary Assessment Pt presents with signs and symptoms consistent with strain of his right levator scapulae. Pt does not appear to have many limitations at this time 3-4 months s/p injury, nearly full shoulder ROM, with exception of fullness in right shoulder at ~150? of abduction. Exhibits no positive special testing. Manual assessment shows fairly significant increased tone on R side along Levator, no other increased tone noted. Likely strained muscle attempting to lift potted tree for planting, will likely benefit from stretching, STM, flexibility and tone management. Physical Therapy Plan Frequency and Duration Frequency of Treatment 2x/Week Plan of Care Start Date 11/05/23 Plan of Care End Date 01/06/24 Therapeutic Interventions Therapeutic Interventions Home Exercise Program,Joint Mobilizations,Manual Therapy, Neuromuscular Re-education, Patient/Caregiver Education, Self-Care/Home Management,Soft Tissue Mobilization, Therapeutic Activities, Therapeutic Exercises Modalities Cold Pack/Ice Massage,Hot Packs Next Visit Focus/Plan Next Note Type Treatment Note Next Visit Plan STM, Levator stretching, shoulder mobility
--- NOTE | 2023-11-05 14:30 | PT.OPPOC ---
Physical, Occupational & Speech Therapy At [facility] Current Diagnoses Pain in right shoulder (11/05/23) Cervicalgia (11/05/23) Visit Care Team Role Provider Type Neymar Briceno DO Family Provider Physician Primary Care Provider Specialty: Family Practice Address: [address] [place] [address], [id number] Email: Nelly Arroyo DO Attending Provider Physician Referring Provider Specialty: Medical Address: [address] [place] [address], [address], [place], [address] Email: [email or web address] Plan Of Care PT-OP-B Current Condition Start: 11/05/23 17:38 Freq: Status: Active Protocol: Document 11/05/23 13:55 DCW (Rec: 11/05/23 17:51 DCW [id number]) Current Condition History of Current Condition Onset Date 3-4 month history Current Complaints Pain along R upper shoulder History of Current Condition Pt is a 68 year old male presenting with a 3-4 month history of right shoulder pain . Pt reports he lifted a potted tree to plant in the ground, and the root ball was heavier than he expected. Notes it didn't feel right at the time, but then has continued, specifically with certain movement. Stretching into horizontal adduction, trying to perform push-ups, and lifting all bother the upper shoulder. Pt describes it more as a feeling of fullness or pressure. Did have a R rotator cuff repair 5-6 years ago, pt notes this feels different, and in a completely different area. Has improved over the last few weeks, but does still bother him. Prior Treatments and Tests Shoulder X-ray: IMPRESSION: 1 . Postsurgical changes in humeral head. 2. Mild degenerative joint disease. If clinical symptoms persist, consider MRI for further evaluation. 3. Old right rib fractures. per Russell Rao on 10/04/2023 PT-OP-T Assessment and Plan Start: 11/05/23 17:38 Freq: Status: Active Protocol: Document 11/05/23 13:55 DCW (Rec: 11/06/23 12:21 DCW [id number]) Physical Therapy Assessment Rehab Potential Rehabilitation Potential Good Evaluation Complexity Number of Personal Factors/Comorbidities 0 Number of Body Systems Impaired 4 or More Clinical Presentation at Evaluation Stable Impairments Impairments Functional Activities, Functional Mobility,Pain, Strength Goals Two Impairment Pt unable to perform preferred activity of push-ups d/t pain in R shoulder Prison Goal (LTG) Pt to return to prior number of push-ups for exercise without increased pain in right upper quadrant. LTG Duration 01/06/24 One Impairment Pt does not have an appropriate home exercise program Short Term Goal (STG) Pt to be independent and ocmpliant with an appropriate HEP STG Duration 12/06/23 Assessment Summary Assessment Pt presents with signs and symptoms consistent with strain of his right levator scapulae. Pt does not appear to have many limitations at this time 3-4 months s/p injury, nearly full shoulder ROM, with exception of fullness in right shoulder at ~150? of abduction. Exhibits no positive special testing. Manual assessment shows fairly significant increased tone on R side along Levator, no other increased tone noted. Likely strained muscle attempting to lift potted tree for planting, will likely benefit from stretching, STM, flexibility and tone management. Physical Therapy Plan Frequency and Duration Frequency of Treatment 2x/Week Plan of Care Start Date 11/05/23 Plan of Care End Date 01/06/24 Therapeutic Interventions Therapeutic Interventions Home Exercise Program,Joint Mobilizations,Manual Therapy, Neuromuscular Re-education, Patient/Caregiver Education, Self-Care/Home Management,Soft Tissue Mobilization, Therapeutic Activities, Therapeutic Exercises Modalities Cold Pack/Ice Massage,Hot Packs Next Visit Focus/Plan Next Note Type Treatment Note Next Visit Plan STM, Levator stretching, shoulder mobility Plan of Care Dates Plan of Care Start Date 11/05/23 Plan of Care End Date 01/06/24 Electronically Signed by: Samson Tracey, PT 11/06/23 [id number] If you are in agreement with this Plan of Care, please return a signed and dated copy. I have reviewed this Plan of Care and certify that the skilled therapy services above are required to meet the patient?s needs. Physician Signature Date Printed Name and Credentials Clinical Instructor Signature Printed Name and Credentials
--- NOTE | 2023-11-08 15:09 | PT.OTN ---
Current Diagnoses Pain in right shoulder (11/08/23) Cervicalgia (11/08/23) Physical Therapy Treatment Note PT-OP-A Visit Information Start: 11/05/23 17:38 Freq: Status: Active Protocol: Document 11/08/23 14:30 DCW (Rec: 11/08/23 15:09 DCW [id number]) Out-Patient Physical Therapy Visit Information Visit Information Visit Type Treatment Note Visit Start Time 14:30 Visit Stop Time 15:00 Visit Number 2 Number of RING BARKER OPERATOR Visits 0 Evaluation Information Evaluation Date 11/05/23 PT-OP-B Current Condition Start: 11/05/23 17:38 Freq: Status: Active Protocol: Document 11/05/23 13:55 DCW (Rec: 11/05/23 17:51 DCW [id number]) Current Condition History of Current Condition Onset Date 3-4 month history Current Complaints Pain along R upper shoulder History of Current Condition Pt is a 68 year old male presenting with a 3-4 month history of right shoulder pain . Pt reports he lifted a potted tree to plant in the ground, and the root ball was heavier than he expected. Notes it didn't feel right at the time, but then has continued, specifically with certain movement. Stretching into horizontal adduction, trying to perform push-ups, and lifting all bother the upper shoulder. Pt describes it more as a feeling of fullness or pressure. Did have a R rotator cuff repair 5-6 years ago, pt notes this feels different, and in a completely different area. Has improved over the last few weeks, but does still bother him. Prior Treatments and Tests Shoulder X-ray: IMPRESSION: 1 . Postsurgical changes in humeral head. 2. Mild degenerative joint disease. If clinical symptoms persist, consider MRI for further evaluation. 3. Old right rib fractures. per Russell Rao on 10/04/2023 PT-OP-C Subjective Start: 11/05/23 17:38 Freq: Status: Active Protocol: Document 11/08/23 14:30 DCW (Rec: 11/08/23 15:09 DCW [id number]) OP-PT Subjective Patient Comments Patient Comments It's the same. PT-OP-F Manual Assessment Start: 11/05/23 17:38 Freq: Status: Active Protocol: Document 11/05/23 13:55 DCW (Rec: 11/06/23 09:33 DCW [id number]) Manual Assessments Soft Tissue Assessment Soft Tissue Mobility Assessment Moderate tone with tenderness to palpation 2/4: Pain with Wincing on R Levator Scapulae PT-OP-K Range of Motion Start: 11/05/23 17:38 Freq: Status: Active Protocol: Document 11/05/23 13:55 DCW (Rec: 11/06/23 09:33 DCW [id number]) Shoulder Goniometric Range of Motion Shoulder Right Active Testing Position Sitting Flexion 180 Abduction 150 External Rotation at 0 degrees Abduction 50 Internal Rotation Behind Back (text) T10 Comments No complaints of pain, but fullness with abduction Left Active Testing Position Sitting Flexion 180 Abduction 180 External Rotation at 0 degrees Abduction 70 Internal Rotation Behind Back (text) T8 PT-OP-L Special Tests Start: 11/05/23 17:38 Freq: Status: Active Protocol: Document 11/05/23 13:55 DCW (Rec: 11/06/23 09:33 DCW [id number]) Special Tests Shoulder Special Tests Passive ER Rotator Cuff Test Results Negative Lift-Off Rotator Cuff Test Results Negative Hurst Homero Impingement Test Results Negative Grind Labrum Test Results Negative Empty Can Test Results Negative Drop Arm Rotator Cuff Test Results Negative Belly Press Test Results Negative AC Joint Compression Test Results Negative Apprehension Test Test Results Negative PT-OP-M Strength Start: 11/05/23 17:38 Freq: Status: Active Protocol: Document 11/05/23 13:55 DCW (Rec: 11/06/23 09:33 DCW [id number]) Scapula Strength Scapula Manual Muscle Testing Right Elevation (C4) 5 Normal Left Elevation (C4) 5 Normal Shoulder Strength Shoulder Manual Muscle Testing Right Flexion 5 Normal Abduction (C5) 5 Normal External Rotation 5 Normal Internal Rotation 5 Normal Left Flexion 5 Normal Abduction (C5) 5 Normal External Rotation 5 Normal Internal Rotation 5 Normal PT-OP-Q Treatments Start: 11/05/23 17:38 Freq: Status: Active Protocol: Document 11/08/23 14:30 DCW (Rec: 11/08/23 15:09 DCW [id number]) Cardio Equipment Upper Body Ergometer (UBE) Duration (Minutes) 4 RPM 60 Seat Position Standing Height 7.5 Therapeutic Exercises Sidelying Exercises Shrugs Sidelying Exercise Name Resisted shrugs, then slow eccentric lowering Side left Manual Therapy Treatment Consent Patient gave verbal consent for manual Yes treatment Soft Tissue Mobilization Levator Body Location R Levator Mobilization Type Myofascial Release,Strumming, Sustained Pressure,Trigger Point Release Intensity/Depth Moderate Body Position Supine PT-OP-T Assessment and Plan Start: 11/05/23 17:38 Freq: Status: Active Protocol: Document 11/08/23 14:30 DCW (Rec: 11/08/23 15:09 DCW [id number]) Physical Therapy Assessment Impairments Impairments Functional Activities, Functional Mobility,Pain, Strength Goals Two Impairment Pt unable to perform preferred activity of push-ups d/t pain in R shoulder Snf Goal (LTG) Pt to return to prior number of push-ups for exercise without increased pain in right upper quadrant. LTG Duration 01/06/24 One Impairment Pt does not have an appropriate home exercise program Short Term Goal (STG) Pt to be independent and compliant with an appropriate HEP STG Duration 12/06/23 Assessment Summary Assessment Pt appeared to tolerate well, did have some discomfort with resisted shrugs. Instructed to keep up with stretching, track how shoulder feels following today's visit. Physical Therapy Plan Frequency and Duration Frequency of Treatment 2x/Week Plan of Care Start Date 11/05/23 Plan of Care End Date 01/06/24 Therapeutic Interventions Therapeutic Interventions Home Exercise Program,Joint Mobilizations,Manual Therapy, Neuromuscular Re-education, Patient/Caregiver Education, Self-Care/Home Management,Soft Tissue Mobilization, Therapeutic Activities, Therapeutic Exercises Modalities Cold Pack/Ice Massage,Hot Packs Next Visit Focus/Plan Next Note Type Treatment Note Next Visit Plan STM, Levator stretching, shoulder mobility
--- NOTE | 2023-11-12 10:28 | PT.OTN ---
Current Diagnoses Pain in right shoulder (11/12/23) Cervicalgia (11/12/23) Physical Therapy Treatment Note PT-OP-A Visit Information Start: 11/05/23 17:38 Freq: Status: Active Protocol: Document 11/12/23 09:45 DCW (Rec: 11/12/23 10:28 DCW [id number]) Out-Patient Physical Therapy Visit Information Visit Information Visit Type Treatment Note Visit Start Time 09:45 Visit Stop Time 10:15 Visit Number 3 Number of PAINTER HAND Visits 0 Evaluation Information Evaluation Date 11/05/23 PT-OP-B Current Condition Start: 11/05/23 17:38 Freq: Status: Active Protocol: Document 11/05/23 13:55 DCW (Rec: 11/05/23 17:51 DCW [id number]) Current Condition History of Current Condition Onset Date 3-4 month history Current Complaints Pain along R upper shoulder History of Current Condition Pt is a 68 year old male presenting with a 3-4 month history of right shoulder pain . Pt reports he lifted a potted tree to plant in the ground, and the root ball was heavier than he expected. Notes it didn't feel right at the time, but then has continued, specifically with certain movement. Stretching into horizontal adduction, trying to perform push-ups, and lifting all bother the upper shoulder. Pt describes it more as a feeling of fullness or pressure. Did have a R rotator cuff repair 5-6 years ago, pt notes this feels different, and in a completely different area. Has improved over the last few weeks, but does still bother him. Prior Treatments and Tests Shoulder X-ray: IMPRESSION: 1 . Postsurgical changes in humeral head. 2. Mild degenerative joint disease. If clinical symptoms persist, consider MRI for further evaluation. 3. Old right rib fractures. per Russell aRo on 10/04/2023 PT-OP-C Subjective Start: 11/05/23 17:38 Freq: Status: Active Protocol: Document 11/12/23 09:45 DCW (Rec: 11/12/23 10:28 DCW [id number]) OP-PT Subjective Patient Comments Patient Comments Notes he has been compliant with his HEP, but not much has changed. PT-OP-F Manual Assessment Start: 11/05/23 17:38 Freq: Status: Active Protocol: Document 11/05/23 13:55 DCW (Rec: 11/06/23 09:33 DCW [id number]) Manual Assessments Soft Tissue Assessment Soft Tissue Mobility Assessment Moderate tone with tenderness to palpation 2/4: Pain with Wincing on R Levator Scapulae PT-OP-K Range of Motion Start: 11/05/23 17:38 Freq: Status: Active Protocol: Document 11/05/23 13:55 DCW (Rec: 11/06/23 09:33 DCW [id number]) Shoulder Goniometric Range of Motion Shoulder Right Active Testing Position Sitting Flexion 180 Abduction 150 External Rotation at 0 degrees Abduction 50 Internal Rotation Behind Back (text) T10 Comments No complaints of pain, but fullness with abduction Left Active Testing Position Sitting Flexion 180 Abduction 180 External Rotation at 0 degrees Abduction 70 Internal Rotation Behind Back (text) T8 PT-OP-L Special Tests Start: 11/05/23 17:38 Freq: Status: Active Protocol: Document 11/05/23 13:55 DCW (Rec: 11/06/23 09:33 DCW [id number]) Special Tests Shoulder Special Tests Passive ER Rotator Cuff Test Results Negative Lift-Off Rotator Cuff Test Results Negative Hurst Homero Impingement Test Results Negative Grind Labrum Test Results Negative Empty Can Test Results Negative Drop Arm Rotator Cuff Test Results Negative Belly Press Test Results Negative AC Joint Compression Test Results Negative Apprehension Test Test Results Negative PT-OP-M Strength Start: 11/05/23 17:38 Freq: Status: Active Protocol: Document 11/05/23 13:55 DCW (Rec: 11/06/23 09:33 DCW [id number]) Scapula Strength Scapula Manual Muscle Testing Right Elevation (C4) 5 Normal Left Elevation (C4) 5 Normal Shoulder Strength Shoulder Manual Muscle Testing Right Flexion 5 Normal Abduction (C5) 5 Normal External Rotation 5 Normal Internal Rotation 5 Normal Left Flexion 5 Normal Abduction (C5) 5 Normal External Rotation 5 Normal Internal Rotation 5 Normal PT-OP-Q Treatments Start: 11/05/23 17:38 Freq: Status: Active Protocol: Document 11/12/23 09:45 DCW (Rec: 11/12/23 10:28 DCW [id number]) Cardio Equipment Upper Body Ergometer (UBE) Duration (Minutes) 4 RPM 60 Seat Position Standing Height 7.5 Therapeutic Exercises Standing Exercises Horizontal Adduction Standing Exercise Name Horizontal Adduction Side right Resistance Purple Shrugs Standing Exercise Name Shrugs Side bilateral Resistance 10# Manual Therapy Treatment Consent Patient gave verbal consent for manual Yes treatment Soft Tissue Mobilization Levator Body Location R Levator Mobilization Type Myofascial Release,Strumming, Sustained Pressure,Trigger Point Release Intensity/Depth Moderate Body Position Supine PT-OP-T Assessment and Plan Start: 11/05/23 17:38 Freq: Status: Active Protocol: Document 11/12/23 09:45 DCW (Rec: 11/12/23 10:28 DCW [id number]) Physical Therapy Assessment Impairments Impairments Functional Activities, Functional Mobility,Pain, Strength Goals Two Impairment Pt unable to perform preferred activity of push-ups d/t pain in R shoulder Vice President Of Software Development Goal (LTG) Pt to return to prior number of push-ups for exercise without increased pain in right upper quadrant. LTG Duration 01/06/24 One Impairment Pt does not have an appropriate home exercise program Short Term Goal (STG) Pt to be independent and ocmpliant with an appropriate HEP STG Duration 12/06/23 Assessment Summary Assessment Pt continues to exhibit increased tone along right levator, but otherwise doing well. Appears to respond well to STM, no increased complaints of pain. Continue to work on mobility and tone management of right shoulder Physical Therapy Plan Frequency and Duration Frequency of Treatment 2x/Week Plan of Care Start Date 11/05/23 Plan of Care End Date 01/06/24 Therapeutic Interventions Therapeutic Interventions Home Exercise Program,Joint Mobilizations,Manual Therapy, Neuromuscular Re-education, Patient/Caregiver Education, Self-Care/Home Management,Soft Tissue Mobilization, Therapeutic Activities, Therapeutic Exercises Modalities Cold Pack/Ice Massage,Hot Packs Next Visit Focus/Plan Next Note Type Treatment Note Next Visit Plan STM, Levator stretching, shoulder mobility
--- NOTE | 2023-11-15 11:18 | PT.OTN ---
Current Diagnoses Pain in right shoulder (11/15/23) Cervicalgia (11/15/23) Physical Therapy Treatment Note PT-OP-A Visit Information Start: 11/05/23 17:38 Freq: Status: Active Protocol: Document 11/15/23 10:35 NBM (Rec: 11/15/23 11:18 NBM [id number]) Out-Patient Physical Therapy Visit Information Visit Information Visit Type Treatment Note Visit Start Time 10:33 Visit Stop Time 11:09 Visit Number 4 Number of PRESSURE TESTER Visits 1 PT-OP-B Current Condition Start: 11/05/23 17:38 Freq: Status: Active Protocol: Document 11/05/23 13:55 DCW (Rec: 11/05/23 17:51 DCW [id number]) Current Condition History of Current Condition Onset Date 3-4 month history Current Complaints Pain along R upper shoulder History of Current Condition Pt is a 68 year old male presenting with a 3-4 month history of right shoulder pain . Pt reports he lifted a potted tree to plant in the ground, and the root ball was heavier than he expected. Notes it didn't feel right at the time, but then has continued, specifically with certain movement. Stretching into horizontal adduction, trying to perform push-ups, and lifting all bother the upper shoulder. Pt describes it more as a feeling of fullness or pressure. Did have a R rotator cuff repair 5-6 years ago, pt notes this feels different, and in a completely different area. Has improved over the last few weeks, but does still bother him. Prior Treatments and Tests Shoulder X-ray: IMPRESSION: 1 . Postsurgical changes in humeral head. 2. Mild degenerative joint disease. If clinical symptoms persist, consider MRI for further evaluation. 3. Old right rib fractures. per Russell Rao on 10/04/2023 PT-OP-C Subjective Start: 11/05/23 17:38 Freq: Status: Active Protocol: Document 11/15/23 10:35 NBM (Rec: 11/15/23 11:18 NBM [id number]) OP-PT Subjective Patient Comments Patient Comments Pt reports it's getting better , but maybe he's just not doing the few movements that bother his R shoulder, like crossing arms and pushups. PT-OP-F Manual Assessment Start: 11/05/23 17:38 Freq: Status: Active Protocol: Document 11/05/23 13:55 DCW (Rec: 11/06/23 09:33 DCW [id number]) Manual Assessments Soft Tissue Assessment Soft Tissue Mobility Assessment Moderate tone with tenderness to palpation 2/4: Pain with Wincing on R Levator Scapulae PT-OP-K Range of Motion Start: 11/05/23 17:38 Freq: Status: Active Protocol: Document 11/05/23 13:55 DCW (Rec: 11/06/23 09:33 DCW [id number]) Shoulder Goniometric Range of Motion Shoulder Right Active Testing Position Sitting Flexion 180 Abduction 150 External Rotation at 0 degrees Abduction 50 Internal Rotation Behind Back (text) T10 Comments No complaints of pain, but fullness with abduction Left Active Testing Position Sitting Flexion 180 Abduction 180 External Rotation at 0 degrees Abduction 70 Internal Rotation Behind Back (text) T8 PT-OP-L Special Tests Start: 11/05/23 17:38 Freq: Status: Active Protocol: Document 11/05/23 13:55 DCW (Rec: 11/06/23 09:33 DCW [id number]) Special Tests Shoulder Special Tests Passive ER Rotator Cuff Test Results Negative Lift-Off Rotator Cuff Test Results Negative Hurst Homero Impingement Test Results Negative Grind Labrum Test Results Negative Empty Can Test Results Negative Drop Arm Rotator Cuff Test Results Negative Belly Press Test Results Negative AC Joint Compression Test Results Negative Apprehension Test Test Results Negative PT-OP-M Strength Start: 11/05/23 17:38 Freq: Status: Active Protocol: Document 11/05/23 13:55 DCW (Rec: 11/06/23 09:33 DCW [id number]) Scapula Strength Scapula Manual Muscle Testing Right Elevation (C4) 5 Normal Left Elevation (C4) 5 Normal Shoulder Strength Shoulder Manual Muscle Testing Right Flexion 5 Normal Abduction (C5) 5 Normal External Rotation 5 Normal Internal Rotation 5 Normal Left Flexion 5 Normal Abduction (C5) 5 Normal External Rotation 5 Normal Internal Rotation 5 Normal PT-OP-Q Treatments Start: 11/05/23 17:38 Freq: Status: Active Protocol: Document 11/15/23 10:35 NBM (Rec: 11/15/23 11:18 NBM [id number]) Cardio Equipment Upper Body Ergometer (UBE) Duration (Minutes) 4 RPM 60 Seat Position Standing Height 7.5 Therapeutic Exercises Sitting Exercises Levator Stretch Sitting Exercise Name Stretch with overpressure, stretch with wrist grasp Side right Comments HEP review Standing Exercises Horizontal Adduction Standing Exercise Name Horizontal Adduction Side right Resistance Purple Reps/Minutes 2x10 Comments cues for UT overactivation at end-range, eccentric control, and breath Shrugs Standing Exercise Name 1.Shrugs 2. hang for stretch Side bilateral Resistance 10# Reps/Minutes 1.x10 2. 30s Comments initial cues for breath, cues for straight elbow w/ fatigue Manual Therapy Treatment Consent Patient gave verbal consent for manual Yes treatment Soft Tissue Mobilization Levator Body Location R Levator Mobilization Type Myofascial Release,Strumming, Sustained Pressure,Trigger Point Release,Other Intensity/Depth Moderate Body Position Hooklying Comments manual pin and stretch to R UT and LS w/ breathwork. Self-Care/Home Management Treatment Education Patient Education Body Mechanics,Home Exercise Program,Joint Protection,Pain Management Other Education review of pt's personal HEP and emphasis to pt to increase hold time for stretches and be mindful of breathwork with stretches for Parasympathetic activation to decrease muscle guarding/tension. PT-OP-T Assessment and Plan Start: 11/05/23 17:38 Freq: Status: Active Protocol: Document 11/15/23 10:35 [facility] (Rec: 11/15/23 11:18 [facility] [id number]) Physical Therapy Assessment Goals Two Impairment Pt unable to perform preferred activity of push-ups d/t pain in R shoulder Fci Goal (LTG) Pt to return to prior number of push-ups for exercise without increased pain in right upper quadrant. LTG Duration 01/06/24 One Impairment Pt does not have an appropriate home exercise program Short Term Goal (STG) Pt to be independent and ocmpliant with an appropriate HEP STG Duration 12/06/23 Assessment Summary Assessment Treatment focus on shoulder mobility, levator stretching, and STM. Pt requires cues for UT overactivation at end-range with resisted horizontal adduction ex; form improves with cueing and repetition. Education to pt to increase stretching hold time and consider counting in breaths instead of time for parasympathetic n.s. activation for decreasing muscle guarding. Pt also advised to be mindful of order of stretching routine to avoid tightening Levator scap m. after stretching it (as with overhead stretches). R shoulder observably lower than L after manual therapy. Physical Therapy Plan Frequency and Duration Frequency of Treatment 2x/Week Plan of Care Start Date 11/05/23 Plan of Care End Date 01/06/24 Therapeutic Interventions Therapeutic Interventions Home Exercise Program,Joint Mobilizations,Manual Therapy, Neuromuscular Re-education, Patient/Caregiver Education, Self-Care/Home Management,Soft Tissue Mobilization, Therapeutic Activities, Therapeutic Exercises Modalities Cold Pack/Ice Massage,Hot Packs Next Visit Focus/Plan Next Note Type Treatment Note Next Visit Plan STM, Levator stretching, shoulder mobility
--- NOTE | 2024-02-04 09:40 | PT.OPDS ---
Current Diagnoses Pain in right shoulder (11/15/23) Cervicalgia (11/15/23) Visit Care Team Role Provider Type Neymar Briceno DO Family Provider Physician Primary Care Provider Specialty: Family Practice Address: [address] [place] [address], [id number] Email: Nelly Arroyo DO Attending Provider Physician Referring Provider Specialty: Medical Address: [address] [place] [address], [address], [place], [address] Email: [email or web address] Visit Number Visit Number 4 Discharge Summary PT-OP-B Current Condition Start: 11/05/23 17:38 Freq: Status: Active Protocol: Document 11/05/23 13:55 DCW (Rec: 11/05/23 17:51 DCW [id number]) Current Condition History of Current Condition Onset Date 3-4 month history Current Complaints Pain along R upper shoulder History of Current Condition Pt is a 68 year old male presenting with a 3-4 month history of right shoulder pain . Pt reports he lifted a potted tree to plant in the ground, and the root ball was heavier than he expected. Notes it didn't feel right at the time, but then has continued, specifically with certain movement. Stretching into horizontal adduction, trying to perform push-ups, and lifting all bother the upper shoulder. Pt describes it more as a feeling of fullness or pressure. Did have a R rotator cuff repair 5-6 years ago, pt notes this feels different, and in a completely different area. Has improved over the last few weeks, but does still bother him. Prior Treatments and Tests Shoulder X-ray: IMPRESSION: 1 . Postsurgical changes in humeral head. 2. Mild degenerative joint disease. If clinical symptoms persist, consider MRI for further evaluation. 3. Old right rib fractures. per Rain Pelletier M.D . on 10/04/2023 PT-OP-C Subjective Start: 11/05/23 17:38 Freq: Status: Active Protocol: Document 11/15/23 10:35 NBM (Rec: 11/15/23 11:18 NBM [id number]) OP-PT Subjective Patient Comments Patient Comments Pt reports it's getting better , but maybe he's just not doing the few movements that bother his R shoulder, like crossing arms and pushups. PT-OP-F Manual Assessment Start: 11/05/23 17:38 Freq: Status: Active Protocol: Document 11/05/23 13:55 DCW (Rec: 11/06/23 09:33 DCW [id number]) Manual Assessments Soft Tissue Assessment Soft Tissue Mobility Assessment Moderate tone with tenderness to palpation 2/4: Pain with Wincing on R Levator Scapulae PT-OP-K Range of Motion Start: 11/05/23 17:38 Freq: Status: Active Protocol: Document 11/05/23 13:55 DCW (Rec: 11/06/23 09:33 DCW [id number]) Shoulder Goniometric Range of Motion Shoulder Right Active Testing Position Sitting Flexion 180 Abduction 150 External Rotation at 0 degrees Abduction 50 Internal Rotation Behind Back (text) T10 Comments No complaints of pain, but fullness with abduction Left Active Testing Position Sitting Flexion 180 Abduction 180 External Rotation at 0 degrees Abduction 70 Internal Rotation Behind Back (text) T8 PT-OP-L Special Tests Start: 11/05/23 17:38 Freq: Status: Active Protocol: Document 11/05/23 13:55 DCW (Rec: 11/06/23 09:33 DCW [id number]) Special Tests Shoulder Special Tests Passive ER Rotator Cuff Test Results Negative Lift-Off Rotator Cuff Test Results Negative Hurst Homero Impingement Test Results Negative Grind Labrum Test Results Negative Empty Can Test Results Negative Drop Arm Rotator Cuff Test Results Negative Belly Press Test Results Negative AC Joint Compression Test Results Negative Apprehension Test Test Results Negative PT-OP-M Strength Start: 11/05/23 17:38 Freq: Status: Active Protocol: Document 11/05/23 13:55 DCW (Rec: 11/06/23 09:33 DCW [id number]) Scapula Strength Scapula Manual Muscle Testing Right Elevation (C4) 5 Normal Left Elevation (C4) 5 Normal Shoulder Strength Shoulder Manual Muscle Testing Right Flexion 5 Normal Abduction (C5) 5 Normal External Rotation 5 Normal Internal Rotation 5 Normal Left Flexion 5 Normal Abduction (C5) 5 Normal External Rotation 5 Normal Internal Rotation 5 Normal PT-OP-T Assessment and Plan Start: 11/05/23 17:38 Freq: Status: Active Protocol: Document 02/04/24 09:39 DCW (Rec: 02/04/24 09:40 [facility] [id number]) Physical Therapy Assessment Assessment Summary Assessment Pt has now not been seen in more than two months, and the POC has since . Pt will be discharged from skilled therapy at this time, pt will require a new referral in order to return in the future. Physical Therapy Plan Discharge Physical Therapy Discharge Reasons No Longer Attending PT Next Visit Focus/Plan Next Note Type Discharge Summary
== END 2024-02-04 10:01 | disposition home or self-care (01) ==
LOC: PHYS 10:30
PROVIDERS: Family Provider Family Medicine; PCP Family Medicine; Referring Provider Family Medicine; Visit Provider Family Medicine
DX: M25.511 Pain in right shoulder (principal); M54.2 Cervicalgia
CPT/HCPCS: 97110; 97140; 97161

== ENCOUNTER → 2025-02-02 08:31 | Outpatient (CLI) | payer MEDICARE, SELFPAY ==
[2025-02-02 09:05] LABS: Add Manual Diff / Slide Review NO; Hematocrit 42.2 % (41-53); Hemoglobin 14.7 g/dL (13.5-17.5); Lymphocytes Absolute Auto 1900 /uL (1100-4500); Mean Corpuscular HGB Conc 34.9 % (30-36); Mean Corpuscular Hemoglobin 30.5 PG (26-34); Mean Corpuscular Volume 87.3 fL (80-100); Platelet Count 268 X10^3/uL (150-400)
[2025-02-02 09:35] LABS: Alanine Aminotransferase 30 IU/L (<50); Albumin 4.7 g/dL (3.5-5.0); Albumin Globulin Ratio 1.7 (1.0-2.8); Alkaline Phosphatase 59 U/L (38-126); Blood Urea Nitrogen 26 mg/dL (9-20); Calcium 9.8 mg/dL (8.4-10.2); Carbon Dioxide 27 mmol/L (22-32); Chloride 103 mmol/L (98-107); Cholesterol 176 mg/dL (140-199); Estimated Glomerular Filt Rate > 60 mL/min (>60); Globulin 2.8 g/dL (1.7-4.1); Glucose 104 mg/dL (70-99); HDL Cholesterol 64 mg/dL (40-60); HEMOLYSIS < 15 (0-50); Potassium 4.5 mmol/L (3.4-5.1); Sodium 138 mmol/L (137-145); Total Protein 7.5 g/dL (6.3-8.2); Triglycerides 43 mg/dL (35-150)
[2025-02-03 03:10] LABS: CRP, High Sensitivity 0.57 mg/L (0.00-3.00)
== END ==
PROVIDERS: Family Provider Family Medicine; PCP Family Medicine; Referring Provider Family Medicine; Visit Provider Family Medicine
DX: E78.5 Hyperlipidemia, unspecified (principal); Z12.5 Encounter for screening for malignant neoplasm of prostate; E66.811 Obesity, class 1; K57.92 Diverticulitis of intestine, part unspecified, without perforation or abscess without bleeding
CPT/HCPCS: 36415; 80053; 80061; 83525; 85025; 86140; G0103

== ENCOUNTER → 2025-02-05 16:12 | Outpatient (CLI) | payer MEDICARE, SELFPAY ==
--- NOTE | 2025-02-05 16:13 | DI.MRI.S_ITS ---
PROCEDURE: MR SHOULDER LT WO CON INDICATIONS: chronic worsening pain with abduction TECHNIQUE: Noncontrast oblique coronal T2 fast spin echo with fat saturation, oblique sagittal T1 spin echo and T2 fast spin echo with fat saturation, axial T1 spin echo and T2 fast spin echo with fat saturation through the shoulder. COMPARISON: None. FINDINGS: Image quality: Excellent. Rotator cuff: In the supraspinatus, there is low-grade articular sided tear at the anterior footprint. There is high-grade interstitial tear at the posterior footprint (08:13). Additional high-grade articular sided tear at the critical zone of the posterior supraspinatus (08:13). The infraspinatus is unremarkable. The teres minor is unremarkable. Low-grade interstitial tear of the subscapularis. No muscle edema or fatty atrophy. Bones and bursae: Mild degenerative changes of the acromioclavicular joint with inferior projecting osteophyte. Type 2 acromion. No os acromiale. No significant subacromial/subdeltoid bursitis. Mild subchondral cystic changes in the lesser tuberosity, and mild subchondral marrow edema at the greater tuberosity, reactive. No acute fracture. Small intra osseous hemangioma is seen in the scapular body (9:5). No focal chondral defect of the glenohumeral articulation. Capsule and soft tissues: Superior labral tear, extending anteriorly to the anterior labrum. No paralabral cyst. Mild tenosynovitis of the extra-articular biceps tendon. The intra-articular biceps tendon is intact. Small glenohumeral effusion. Mild subcoracoid bursitis. No intra-articular body. Small intramuscular lipoma in the anterior deltoid, partially visualized. IMPRESSION: 1. High-grade tear at the posterior supraspinatus. 2. Low-grade tear of the subscapularis. 3. Labral tear. 4. Mild tenosynovitis of the extra-articular biceps tendon. Dictated by: Karma Walters M.D. on 02/05/2025 at 17:58 Approved by: Karma Walters M.D. on 02/05/2025 at 18:06
== END ==
PROVIDERS: Family Provider Family Medicine; PCP Family Medicine; Referring Provider Family Medicine; Visit Provider Family Medicine
DX: M75.112 Incomplete rotator cuff tear or rupture of left shoulder, not specified as traumatic (principal); M67.912 Unspecified disorder of synovium and tendon, left shoulder; S43.492A Other sprain of left shoulder joint, initial encounter; M65.922 Unspecified synovitis and tenosynovitis, left upper arm
CPT/HCPCS: 73221